=== PATIENT | female | born 1960 | race Caucasian/White ===

== ENCOUNTER 2018-10-01 08:02 | Day surgery (SDC) | payer OTHER ==
[~2018-10-01] VITALS: Ht 160 cm; Wt 84.5 kg
[~2018-10-01 08:02] MED LIST: HYDR-1666; JANUVIA; LISINOPRIL; METFORMIN; METOPROLOL; OMEPRAZOLE; RANITIDINE; SIMV5TAB14
[2018-10-01 08:47] VITALS: Ht 160 cm; Wt 84.5 kg
--- NOTE | 2018-10-01 09:04 | PREAC ---
Date/Time of Note Date/Time of Note DATE: 10/01/18 TIME: 09:01 Anesthesia Eval and Record Evaluation Time Pre-Procedure Interview DATE: 10/01/18 TIME: 09:01 Age 58 Sex female NPO: 8 hrs Preoperative diagnosis Colon screening Planned procedure Colonoscopy Past Medical History Past Medical History: Includes Cardio: HTN, Dyslipidemia Endo: Diabetes GI: Morbid obesity Surgery & Anesthesia Issues No known issue Meds Anticoagulation: No Beta Yariel within 24 hr: Yes Reported Medications [Ranitidine] No Conflict Check 02/12/15 [Omeprazole] No Conflict Check 02/12/15 [Januvia] No Conflict Check 02/12/15 [Metoprolol] No Conflict Check 02/12/15 [Lisinopril] No Conflict Check 02/12/15 Simvastatin* (Simvastatin*) 5 Mg Tablet 08/25/10 Metformin 08/25/10 Discontinued Reported Medications Hydrocodone Bit/Acetaminophen (Vicodin 5/500 Tablet) 1 Tab Tablet 08/25/10 Meds reviewed: Yes Allergies Coded Allergies: No Known Allergies (Verified Allergy, Unknown, 10/01/18) Allergies Reviewed: Yes Labs/Studies Labs Reviewed: Reviewed by anesthesiologist test: N/A Studies: ECG Pre-procedure Exam Last vitals BP:133/67, P:78, SPo2:100%, T:98,9 Airway: Adequate mouth opening, Adequate thyromental dist Mallampati: Mallampati II Teeth: Normal Lung: Normal Heart: Normal ASA Physical Status ASA physical status: 3 Emergency: None Planned Anesthetic General/MAC: MAC Planned Pain Management Parenteral pain med Pre-operative Attestations Prior to commencing anesthesia and surgery, the patient was re-evaluated, there was verification of: *The patient's identity *The results of appropriate recent lab work and preoperative vital signs *The above evaluation not changing prior to induction *Anesthetic plan, risk benefits, alternative and complications discussed with patient/family; questions answered; patient/family understands, accepts and wishes to proceed. JEANNIE CAMPOS MD October 01, 2018 09:04
[2018-10-01 09:20] VITALS: BP 195/84; PULSE 60; RESP 18
[2018-10-01] MEDS ORDERED: PROPOFOL 60 ML ONE (09:23)
[2018-10-01] MEDS ORDERED: LIDOCAINE 2% (SDV) 5 ML INJ ONE (09:23)
--- NOTE | 2018-10-01 09:43 | PAC ---
Date/Time of Note Date/Time of Note DATE: 10/01/18 TIME: 09:42 Post-Anesthesia Notes Post-Anesthesia Note Activity: WNL Respiratory function: WNL Cardiovascular function: WNL Mental status: Baseline Pain reasonably controlled: Yes Hydration appropriate: Yes Nausea/Vomiting absent: Yes Comments BP:112/56, P:68, Spo2:100%, T:98,8 JEANNIE CAMPOS MD October 01, 2018 09:43
[2018-10-01 10:17] VITALS: BP 170/79; PULSE 60; RESP 20
== END 2018-10-01 10:49 | disposition home or self-care (01) ==
LOC: GIL 08:02
PROVIDERS: ATTEND Internal Medicine Gastroenterology
DX: Z12.11 Encounter for screening for malignant neoplasm of colon (principal); D12.0 Benign neoplasm of cecum; E11.9 Type 2 diabetes mellitus without complications; I10 Essential (primary) hypertension
CPT/HCPCS: 45385; 82962; Z7610; 88305